=== PATIENT | female | born 1950 | race Caucasian/White ===

== ENCOUNTER 2017-04-06 12:27 | Inpatient (IN) | payer OTHER ==
[2017-04-07] MEDS: FUROSEMIDE 40 MG INJ IV ×3 (00:19→13:06)
[2017-04-07 00:22] LABS: ADD MAN DIFF? NO
[2017-04-07 00:24] LABS: BASOPHILS % 0.3 % (0.0-2.0); EOSINOPHILS # 0.3 10^3/ul (0.0-0.5); EOSINOPHILS % 3.1 % (0.0-7.0); HEMATOCRIT 31.1 % (37.0-47.0); HEMOGLOBIN 9.3 g/dl (12.0-16.0); LYMPHOCYTES # 1.6 10^3/ul (0.8-2.9); LYMPHOCYTES % 16.9 % (15.0-51.0); MEAN CORPUSCULAR HEMOGLOBIN 24.7 pg (29.0-33.0); MEAN CORPUSCULAR HGB CONC 29.9 g/dl (32.0-37.0); MEAN CORPUSCULAR VOLUME 82.5 fl (82.0-101.0); MEAN PLATELET VOLUME 10.2 fl (7.4-10.4); MONOCYTE # 0.6 10^3/ul (0.3-0.9); MONOCYTES % 6.2 % (0.0-11.0); NEUTROPHIL # 7.1 10^3/ul (1.6-7.5); NEUTROPHILS % 73.2 % (39.0-77.0); PLATELET COUNT 278 10^3/UL (140-415); RED BLOOD COUNT 3.77 10^6/ul (4.20-5.40); RED CELL DISTRIBUTION WIDTH 17.1 % (11.5-14.5)
[2017-04-07 00:24] LABS: WHITE BLOOD COUNT 9.7 10^3/ul (4.8-10.8)
[2017-04-07 01:00] LABS: ALANINE AMINOTRANSFERASE 31 IU/L (13-69); ALBUMIN 3.3 g/dl (3.3-4.9); ALBUMIN/GLOBULIN RATIO 0.89; ALKALINE PHOSPHATASE 101 IU/L (42-121); ANION GAP 14 (8-16); ASPARTATE AMINO TRANSFERASE 18 IU/L (15-46); BILIRUBIN,INDIRECT 0.1 mg/dl (0-1.1); BILIRUBIN,TOTAL 0.1 mg/dl (0.2-1.3); BLOOD UREA NITROGEN 20 mg/dl (7-20); CALCIUM 8.6 mg/dl (8.4-10.2); CARBON DIOXIDE 25 mmol/L (21-31); CHLORIDE 103 mmol/L (97-110); CREATININE 0.84 mg/dl (0.44-1.00); GLUCOSE 165 mg/dl (70-220); POTASSIUM 4.5 mmol/L (3.5-5.1); SODIUM 137 mmol/L (135-144)
[2017-04-07 01:13] LABS: B-TYPE NATRIURETIC PEPTIDE 369 PG/ML (0-125)
[2017-04-07 01:36] LABS: TROPONIN-I < 0.012 ng/ml (0.00-0.12)
[2017-04-07] MEDS ORDERED: NITROGLYCERIN (SL) 0.4 MG TAB SL (05:30)
[2017-04-07] MEDS ORDERED: morphine 2 MG INJ IV (05:30)
[2017-04-07] MEDS ORDERED: ONDANSETRON 4 MG INJ IV (05:30)
[2017-04-07] MEDS ORDERED: NACL 0.9% 3 ML SYG IV (05:30)
[2017-04-07] MEDS ORDERED: ALBUTEROL HFA 8 GM INHALER INH (06:00)
[2017-04-07] MEDS ORDERED: DEXTROSE 50% 50 ML SYRINGE IV ×2 (06:30)
[2017-04-07] MEDS ORDERED: GLUCOSE GEL 15 GRAM TUBE PO ×2 (06:30)
[2017-04-07] MEDS ORDERED: GLUCOSE GEL 15 GRAM TUBE BUCCAL (06:30)
[2017-04-07] MEDS ORDERED: GLUCAGON 1 MG INJ IM (06:30)
[2017-04-07 06:52] LABS: CREATINE KINASE 45 IU/L (23-200)
[2017-04-07 07:02] LABS: CK INDEX 1.6; CK-MB 0.71 ng/ml (0.0-2.4)
[2017-04-07 07:07] LABS: TROPONIN-I < 0.012 ng/ml (0.00-0.12)
[2017-04-07] MEDS: INSULIN ASPART [NOVOLOG] 3 ML PEN SC ×6 (07:53→23:15)
[2017-04-07] MEDS ORDERED: LISPRO SC (08:00)
[2017-04-07] MEDS ORDERED: INSULIN GLARGINE [LANtus] 3 ML PEN SC (09:00)
[2017-04-07] MEDS: INSULIN GLARGINE [LANtus] 3 ML PEN SC (09:13)
[2017-04-07] MEDS: ASPIRIN (EC) 81 MG TAB PO (09:15)
[2017-04-07] MEDS: ATORVASTATIN 40 MG TAB PO (09:15)
[2017-04-07] MEDS: GABAPENTIN 300 MG CAP PO ×2 (09:15→23:12)
[2017-04-07] MEDS: AMLODIPINE 10 MG TAB PO (09:16)
[2017-04-07] MEDS: BENAZEPRIL 40 MG TAB PO (09:16)
[2017-04-07] MEDS: HYDROCHLOROTHIAZIDE 25 MG TAB PO (09:19)
[2017-04-07] MEDS: FAMOTIDINE 20 MG TAB PO ×2 (09:19→23:12)
[2017-04-07 11:34] LABS: CREATINE KINASE 46 IU/L (23-200)
[2017-04-07 11:46] LABS: CK INDEX 1.2; CK-MB 0.56 ng/ml (0.0-2.4)
[2017-04-07 11:54] LABS: TROPONIN-I < 0.012 ng/ml (0.00-0.12)
[2017-04-07] MEDS: LATANOPROST 0.005% 2.5 ML OPH BOTH EYES (23:11)
[2017-04-08] MEDS: hydrALAzine 20 MG INJ IV ×2 (00:33→20:26)
[2017-04-08] MEDS: ACCU-CHEK XX (02:21)
[2017-04-08] MEDS: FUROSEMIDE 40 MG INJ IV ×2 (07:03→17:41)
[2017-04-08] MEDS: ATORVASTATIN 40 MG TAB PO (08:28)
[2017-04-08] MEDS: GABAPENTIN 300 MG CAP PO ×2 (08:28→20:25)
[2017-04-08] MEDS: FAMOTIDINE 20 MG TAB PO ×2 (08:28→20:25)
[2017-04-08] MEDS: ASPIRIN (EC) 81 MG TAB PO (08:28)
[2017-04-08] MEDS: BENAZEPRIL 40 MG TAB PO (08:29)
[2017-04-08] MEDS: AMLODIPINE 10 MG TAB PO (08:29)
[2017-04-08] MEDS: INSULIN ASPART [NOVOLOG] 3 ML PEN SC ×7 (08:33→20:25)
[2017-04-08] MEDS: INSULIN GLARGINE [LANtus] 3 ML PEN SC (08:34)
[2017-04-08 08:53] LABS: ADD MAN DIFF? NO; BASOPHILS % 0.6 % (0.0-2.0); EOSINOPHILS # 0.3 10^3/ul (0.0-0.5); EOSINOPHILS % 4.6 % (0.0-7.0); HEMATOCRIT 29.7 % (37.0-47.0); HEMOGLOBIN 9.4 g/dl (12.0-16.0); LYMPHOCYTES # 1.4 10^3/ul (0.8-2.9); LYMPHOCYTES % 21.7 % (15.0-51.0); MEAN CORPUSCULAR HEMOGLOBIN 25.2 pg (29.0-33.0); MEAN CORPUSCULAR HGB CONC 31.6 g/dl (32.0-37.0); MEAN CORPUSCULAR VOLUME 79.6 fl (82.0-101.0); MEAN PLATELET VOLUME 9.9 fl (7.4-10.4); MONOCYTE # 0.6 10^3/ul (0.3-0.9); NEUTROPHIL # 4.2 10^3/ul (1.6-7.5); NEUTROPHILS % 63.8 % (39.0-77.0); PLATELET COUNT 285 10^3/UL (140-415); RED BLOOD COUNT 3.73 10^6/ul (4.20-5.40); RED CELL DISTRIBUTION WIDTH 17.1 % (11.5-14.5)
[2017-04-08 08:53] LABS: WHITE BLOOD COUNT 6.5 10^3/ul (4.8-10.8)
[2017-04-08 09:23] LABS: ALANINE AMINOTRANSFERASE 31 IU/L (13-69); ALBUMIN 3.3 g/dl (3.3-4.9); ALBUMIN/GLOBULIN RATIO 0.94; ALKALINE PHOSPHATASE 93 IU/L (42-121); ANION GAP 11 (8-16); ASPARTATE AMINO TRANSFERASE 16 IU/L (15-46); BILIRUBIN,INDIRECT 0.2 mg/dl (0-1.1); BILIRUBIN,TOTAL 0.2 mg/dl (0.2-1.3); BLOOD UREA NITROGEN 34 mg/dl (7-20); CARBON DIOXIDE 32 mmol/L (21-31); CHLORIDE 97 mmol/L (97-110); CHOL/HDL RATIO 2.4 RATIO; CHOLESTEROL 118 mg/dl (100-200); CREATININE 0.98 mg/dl (0.44-1.00); GLUCOSE 161 mg/dl (70-220); HDL CHOLESTEROL 48 mg/dl (35-98); LDL CHOLESTEROL,CALCULATED 54 mg/dl; MAGNESIUM 1.9 mg/dl (1.7-2.5); SODIUM 136 mmol/L (135-144); TOTAL PROTEIN 6.8 g/dl (6.1-8.1); TRIGLYCERIDES 82 mg/dl (0-149)
[2017-04-08 09:34] LABS: HEMOGLOBIN A1C 7.4 % (0-5.9)
[2017-04-08 09:49] LABS: IRON 40 ug/dl (35-150)
[2017-04-08 09:58] LABS: % IRON SATURATION 11 % SAT (22-52); TOTAL IRON BINDING CAPACITY 376 ug/dl (241-421)
[2017-04-08 10:25] LABS: FERRITIN 28.1 ng/ml (11.1-264.0)
[2017-04-08] MEDS: LEVALBUTEROL (NEB) 0.63 MG/3 ML AMP HHN (13:07)
[2017-04-08] MEDS: SOD FERRIC GLUC COMPLX 125 MG in SOD CHLORIDE 0.9% 100 ML IVPB (17:40)
[2017-04-08] MEDS: MAGNESIUM SULFATE 2 GM/50 ML 50 ML IVPB (19:56)
[2017-04-08] MEDS: LATANOPROST 0.005% 2.5 ML OPH BOTH EYES (20:26)
[2017-04-09] MEDS: ACCU-CHEK XX (02:00)
[2017-04-09] MEDS: FUROSEMIDE 40 MG INJ IV (05:29)
[2017-04-09] MEDS: INSULIN ASPART [NOVOLOG] 3 ML PEN SC ×8 (08:00→21:00)
[2017-04-09] MEDS: ASPIRIN (EC) 81 MG TAB PO (08:11)
[2017-04-09] MEDS: AMLODIPINE 10 MG TAB PO (08:11)
[2017-04-09] MEDS: GABAPENTIN 300 MG CAP PO ×2 (08:11→20:27)
[2017-04-09] MEDS: FAMOTIDINE 20 MG TAB PO ×2 (08:11→20:27)
[2017-04-09] MEDS: ATORVASTATIN 40 MG TAB PO (08:11)
[2017-04-09] MEDS: BENAZEPRIL 40 MG TAB PO (08:12)
[2017-04-09] MEDS: INSULIN GLARGINE [LANtus] 3 ML PEN SC (08:16)
[2017-04-09] MEDS: LEVALBUTEROL (NEB) 0.63 MG/3 ML AMP HHN (08:34)
[2017-04-09] MEDS: SOD FERRIC GLUC COMPLX 125 MG in SOD CHLORIDE 0.9% 100 ML IVPB (16:09)
[2017-04-09 16:25] LABS: ANION GAP 11 (8-16); BLOOD UREA NITROGEN 33 mg/dl (7-20); CALCIUM 8.5 mg/dl (8.4-10.2); CARBON DIOXIDE 32 mmol/L (21-31); CHLORIDE 97 mmol/L (97-110); GLUCOSE 206 mg/dl (70-220); MAGNESIUM 2.2 mg/dl (1.7-2.5); POTASSIUM 3.3 mmol/L (3.5-5.1); SODIUM 137 mmol/L (135-144)
[2017-04-09] MEDS: BUMETANIDE 3 MG in DEXTROSE 5% 18 ML IV (17:03)
[2017-04-09] MEDS: POTASSIUM CHLORIDE (SR) 20 MEQ TAB PO (17:52)
[2017-04-09] MEDS: LATANOPROST 0.005% 2.5 ML OPH BOTH EYES (20:27)
[2017-04-10] MEDS: ACCU-CHEK XX (02:00)
[2017-04-10] MEDS: FUROSEMIDE 40 MG INJ IV (05:39)
[2017-04-10 07:40] LABS: ADD MAN DIFF? NO
[2017-04-10 07:49] LABS: BASOPHILS % 0.5 % (0.0-2.0); EOSINOPHILS # 0.3 10^3/ul (0.0-0.5); EOSINOPHILS % 5.7 % (0.0-7.0); HEMATOCRIT 32.1 % (37.0-47.0); HEMOGLOBIN 9.5 g/dl (12.0-16.0); LYMPHOCYTES # 1.1 10^3/ul (0.8-2.9); LYMPHOCYTES % 19.5 % (15.0-51.0); MEAN CORPUSCULAR HEMOGLOBIN 24.2 pg (29.0-33.0); MEAN CORPUSCULAR HGB CONC 29.6 g/dl (32.0-37.0); MEAN CORPUSCULAR VOLUME 81.9 fl (82.0-101.0); MEAN PLATELET VOLUME 9.9 fl (7.4-10.4); MONOCYTE # 0.6 10^3/ul (0.3-0.9); MONOCYTES % 9.9 % (0.0-11.0); NEUTROPHIL # 3.8 10^3/ul (1.6-7.5); NEUTROPHILS % 64.2 % (39.0-77.0); PLATELET COUNT 267 10^3/UL (140-415); RED BLOOD COUNT 3.92 10^6/ul (4.20-5.40); RED CELL DISTRIBUTION WIDTH 16.7 % (11.5-14.5)
[2017-04-10 07:49] LABS: WHITE BLOOD COUNT 5.8 10^3/ul (4.8-10.8)
[2017-04-10] MEDS: ASPIRIN (EC) 81 MG TAB PO (08:05)
[2017-04-10] MEDS: FAMOTIDINE 20 MG TAB PO ×2 (08:06→20:17)
[2017-04-10] MEDS: AMLODIPINE 10 MG TAB PO (08:06)
[2017-04-10] MEDS: ATORVASTATIN 40 MG TAB PO (08:06)
[2017-04-10] MEDS: BENAZEPRIL 40 MG TAB PO (08:06)
[2017-04-10] MEDS: GABAPENTIN 300 MG CAP PO ×2 (08:06→20:17)
[2017-04-10 08:07] LABS: ANION GAP 10 (8-16); BLOOD UREA NITROGEN 33 mg/dl (7-20); CALCIUM 9.1 mg/dl (8.4-10.2); CARBON DIOXIDE 34 mmol/L (21-31); CHLORIDE 98 mmol/L (97-110); CREATININE 0.87 mg/dl (0.44-1.00); GLUCOSE 204 mg/dl (70-220); POTASSIUM 4.6 mmol/L (3.5-5.1); SODIUM 137 mmol/L (135-144)
[2017-04-10] MEDS: INSULIN GLARGINE [LANtus] 3 ML PEN SC ×2 (08:10→20:19)
[2017-04-10] MEDS: INSULIN ASPART [NOVOLOG] 3 ML PEN SC ×7 (08:11→20:26)
[2017-04-10 08:17] LABS: MAGNESIUM 2.2 mg/dl (1.7-2.5)
[2017-04-10] MEDS: hydrALAzine 20 MG INJ IV (11:49)
[2017-04-10] MEDS: BUMETANIDE 6 MG in DEXTROSE 5% 36 ML IV (14:00)
[2017-04-10] MEDS: SOD FERRIC GLUC COMPLX 125 MG in SOD CHLORIDE 0.9% 100 ML IVPB (16:52)
[2017-04-10] MEDS ORDERED: INSULIN ASPART [NOVOLOG] 3 ML PEN SC (18:05)
[2017-04-10] MEDS: LATANOPROST 0.005% 2.5 ML OPH BOTH EYES (20:17)
[2017-04-11] MEDS: ACCU-CHEK XX (01:52)
[2017-04-11] MEDS: BUMETANIDE 1 MG INJ IV (05:35)
[2017-04-11 07:31] LABS: ADD MAN DIFF? NO
[2017-04-11 07:37] LABS: BASOPHILS % 0.6 % (0.0-2.0); EOSINOPHILS # 0.3 10^3/ul (0.0-0.5); EOSINOPHILS % 4.1 % (0.0-7.0); HEMATOCRIT 30.8 % (37.0-47.0); HEMOGLOBIN 9.5 g/dl (12.0-16.0); LYMPHOCYTES # 1.2 10^3/ul (0.8-2.9); MEAN CORPUSCULAR HEMOGLOBIN 25.1 pg (29.0-33.0); MEAN CORPUSCULAR HGB CONC 30.8 g/dl (32.0-37.0); MEAN CORPUSCULAR VOLUME 81.3 fl (82.0-101.0); MEAN PLATELET VOLUME 10.4 fl (7.4-10.4); MONOCYTE # 0.7 10^3/ul (0.3-0.9); MONOCYTES % 10.2 % (0.0-11.0); NEUTROPHIL # 4.5 10^3/ul (1.6-7.5); NEUTROPHILS % 66.5 % (39.0-77.0); PLATELET COUNT 262 10^3/UL (140-415); RED BLOOD COUNT 3.79 10^6/ul (4.20-5.40); RED CELL DISTRIBUTION WIDTH 16.9 % (11.5-14.5)
[2017-04-11 07:37] LABS: WHITE BLOOD COUNT 6.8 10^3/ul (4.8-10.8)
[2017-04-11 07:49] LABS: ANION GAP 14 (8-16); BLOOD UREA NITROGEN 36 mg/dl (7-20); CALCIUM 8.6 mg/dl (8.4-10.2); CARBON DIOXIDE 31 mmol/L (21-31); CHLORIDE 98 mmol/L (97-110); CREATININE 0.81 mg/dl (0.44-1.00); GLUCOSE 186 mg/dl (70-220); POTASSIUM 4.7 mmol/L (3.5-5.1); SODIUM 138 mmol/L (135-144)
[2017-04-11 08:23] LABS: MAGNESIUM 1.8 mg/dl (1.7-2.5)
[2017-04-11] MEDS: INSULIN ASPART [NOVOLOG] 3 ML PEN SC ×6 (09:19→20:15)
[2017-04-11] MEDS: ASPIRIN (EC) 81 MG TAB PO (09:20)
[2017-04-11] MEDS: FAMOTIDINE 20 MG TAB PO ×2 (09:20→20:08)
[2017-04-11] MEDS: ATORVASTATIN 40 MG TAB PO (09:20)
[2017-04-11] MEDS: BENAZEPRIL 40 MG TAB PO (09:20)
[2017-04-11] MEDS: GABAPENTIN 300 MG CAP PO ×2 (09:20→20:08)
[2017-04-11] MEDS: INSULIN GLARGINE [LANtus] 3 ML PEN SC ×2 (09:23→20:16)
[2017-04-11] MEDS: AMLODIPINE 10 MG TAB PO (09:23)
[2017-04-11] MEDS ORDERED: BUMETANIDE 1 MG INJ IV (18:00)
[2017-04-11] MEDS: DEXTROSE 5% IV (18:22)
[2017-04-11] MEDS: BUMETANIDE IV (18:22)
[2017-04-11] MEDS: LATANOPROST 0.005% 2.5 ML OPH BOTH EYES (20:07)
[2017-04-11] MEDS: hydrALAzine 20 MG INJ IV (23:35)
[2017-04-12] MEDS: ACCU-CHEK XX (02:00)
[2017-04-12] MEDS: BUMETANIDE IV ×2 (05:44→16:59)
[2017-04-12] MEDS: DEXTROSE 5% IV ×2 (05:44→16:59)
[2017-04-12] MEDS: ACETAMINOPHEN 325 MG TAB PO (05:52)
[2017-04-12] MEDS ORDERED: GUAIFENESIN/DM 5ML CUP PO (07:00)
[2017-04-12 07:06] LABS: ANION GAP 12 (8-16); BLOOD UREA NITROGEN 32 mg/dl (7-20); CALCIUM 8.5 mg/dl (8.4-10.2); CARBON DIOXIDE 33 mmol/L (21-31); CHLORIDE 96 mmol/L (97-110); CREATININE 0.92 mg/dl (0.44-1.00); GLUCOSE 225 mg/dl (70-220); MAGNESIUM 1.8 mg/dl (1.7-2.5); POTASSIUM 3.9 mmol/L (3.5-5.1); SODIUM 137 mmol/L (135-144)
[2017-04-12] MEDS: INSULIN ASPART [NOVOLOG] 3 ML PEN SC ×8 (08:03→23:25)
[2017-04-12] MEDS: AMLODIPINE 10 MG TAB PO (09:05)
[2017-04-12] MEDS: ATORVASTATIN 40 MG TAB PO (09:05)
[2017-04-12] MEDS: GABAPENTIN 300 MG CAP PO ×2 (09:06→20:53)
[2017-04-12] MEDS: ASPIRIN (EC) 81 MG TAB PO (09:06)
[2017-04-12] MEDS: FAMOTIDINE 20 MG TAB PO ×2 (09:06→20:53)
[2017-04-12] MEDS: BENAZEPRIL 40 MG TAB PO (09:06)
[2017-04-12] MEDS: INSULIN GLARGINE [LANtus] 3 ML PEN SC ×3 (09:14→23:24)
[2017-04-12] MEDS: MAGNESIUM SULFATE 2 GM/50 ML 50 ML IVPB (17:00)
[2017-04-12] MEDS: LATANOPROST 0.005% 2.5 ML OPH BOTH EYES (20:53)
[2017-04-13] MEDS: ACCU-CHEK XX (02:00)
[2017-04-13] MEDS: BUMETANIDE IV ×2 (06:21→17:39)
[2017-04-13] MEDS: DEXTROSE 5% IV ×2 (06:21→17:39)
[2017-04-13] MEDS: INSULIN ASPART [NOVOLOG] 3 ML PEN SC ×6 (08:04→17:44)
[2017-04-13] MEDS: INSULIN GLARGINE [LANtus] 3 ML PEN SC (08:05)
[2017-04-13] MEDS: GABAPENTIN 300 MG CAP PO (08:41)
[2017-04-13] MEDS: BENAZEPRIL 40 MG TAB PO (08:41)
[2017-04-13] MEDS: ASPIRIN (EC) 81 MG TAB PO (08:41)
[2017-04-13] MEDS: AMLODIPINE 10 MG TAB PO (08:41)
[2017-04-13] MEDS: FAMOTIDINE 20 MG TAB PO (08:41)
[2017-04-13] MEDS: ATORVASTATIN 40 MG TAB PO (08:41)
[2017-04-13] MEDS ORDERED: INSULIN GLARGINE [LANtus] 3 ML PEN SC (20:00)
== END 2017-04-13 18:42 | disposition home or self-care (01) | DRG 292 ==
LOC: E/R 12:27 → MS4 04-07 04:39
DX: I11.0 Hypertensive heart disease with heart failure (principal); Z68.42 Body mass index [BMI] 45.0-49.9, adult; I80.8 Phlebitis and thrombophlebitis of other sites; E11.9 Type 2 diabetes mellitus without complications; I25.10 Atherosclerotic heart disease of native coronary artery without angina pectoris; D50.9 Iron deficiency anemia, unspecified; I50.33 Acute on chronic diastolic (congestive) heart failure; E66.9 Obesity, unspecified; I34.0 Nonrheumatic mitral (valve) insufficiency; Z79.4 Long term (current) use of insulin
CPT/HCPCS: 71045; 80048; 80053; 80061; 82550; 82553; 82728; 82962; 83036; 83540; 83735; 83880; 84443; 84484; 85025; 93005; 94640; 94664

== ENCOUNTER 2017-05-17 19:07 | Inpatient (IN) | payer MEDICARE, OTHER ==
[2017-05-17] MEDS: IPRATROPIUM (NEB) 0.5 MG/2.5 ML AMP INH (23:07)
[2017-05-17] MEDS: ALBUTEROL 0.083% (NEB) 2.5 MG/3 ML AMP INH (23:07)
[2017-05-17 23:37] LABS: ADD MAN DIFF? NO
[2017-05-17 23:40] LABS: BASOPHILS % 0.4 % (0.0-2.0); EOSINOPHILS # 0.3 10^3/ul (0.0-0.5); EOSINOPHILS % 4.2 % (0.0-7.0); HEMATOCRIT 28.4 % (37.0-47.0); HEMOGLOBIN 8.9 g/dl (12.0-16.0); LYMPHOCYTES # 1.7 10^3/ul (0.8-2.9); LYMPHOCYTES % 21.2 % (15.0-51.0); MEAN CORPUSCULAR HEMOGLOBIN 24.8 pg (29.0-33.0); MEAN CORPUSCULAR HGB CONC 31.3 g/dl (32.0-37.0); MEAN CORPUSCULAR VOLUME 79.1 fl (82.0-101.0); MONOCYTE # 0.7 10^3/ul (0.3-0.9); MONOCYTES % 8.9 % (0.0-11.0); NEUTROPHIL # 5.1 10^3/ul (1.6-7.5); NEUTROPHILS % 64.8 % (39.0-77.0); PLATELET COUNT 275 10^3/UL (140-415); RED BLOOD COUNT 3.59 10^6/ul (4.20-5.40); RED CELL DISTRIBUTION WIDTH 16.8 % (11.5-14.5)
[2017-05-17 23:40] LABS: WHITE BLOOD COUNT 7.9 10^3/ul (4.8-10.8)
[2017-05-17 23:53] LABS: INR 1.08; PROTIME 14.1 Sec (11.9-14.9); PT RATIO 1.1
[2017-05-17 23:54] LABS: PARTIAL THROMBOPLASTIN TIME 29.9 Sec (25.0-35.0)
[2017-05-18 00:14] LABS: ALANINE AMINOTRANSFERASE 26 IU/L (13-69); ALBUMIN 2.9 g/dl (3.3-4.9); ALKALINE PHOSPHATASE 118 IU/L (42-121); ANION GAP 14 (8-16); ASPARTATE AMINO TRANSFERASE 13 IU/L (15-46); B-TYPE NATRIURETIC PEPTIDE 549 PG/ML (0-125); BILIRUBIN,INDIRECT 0.1 mg/dl (0-1.1); BILIRUBIN,TOTAL 0.1 mg/dl (0.2-1.3); BLOOD UREA NITROGEN 30 mg/dl (7-20); CALCIUM 8.8 mg/dl (8.4-10.2); CARBON DIOXIDE 22 mmol/L (21-31); CHLORIDE 104 mmol/L (97-110); GLUCOSE 142 mg/dl (70-220); POTASSIUM 4.1 mmol/L (3.5-5.1); SODIUM 136 mmol/L (135-144); TOTAL PROTEIN 6.1 g/dl (6.1-8.1); TROPONIN-I < 0.012 ng/ml (0.00-0.12)
[2017-05-18] MEDS: FUROSEMIDE 40 MG INJ IV ×2 (02:59→13:00)
[2017-05-18] MEDS ORDERED: ALBUTEROL/IPRATROPIUM (NEB) 3 ML AMP HHN (07:00)
[2017-05-18] MEDS ORDERED: NACL 0.9% 3 ML SYG IV (07:00)
[2017-05-18] MEDS ORDERED: GLUCOSE GEL 15 GRAM TUBE BUCCAL (07:00)
[2017-05-18] MEDS ORDERED: GLUCOSE GEL 15 GRAM TUBE PO ×2 (07:00)
[2017-05-18] MEDS ORDERED: DEXTROSE 50% 50 ML SYRINGE IV ×2 (07:00)
[2017-05-18] MEDS ORDERED: GLUCAGON 1 MG INJ IM (07:00)
[2017-05-18 11:13] LABS: ADD MAN DIFF? NO
[2017-05-18 11:20] LABS: BASOPHILS % 0.6 % (0.0-2.0); EOSINOPHILS # 0.3 10^3/ul (0.0-0.5); EOSINOPHILS % 4.4 % (0.0-7.0); HEMATOCRIT 28.7 % (37.0-47.0); HEMOGLOBIN 9.1 g/dl (12.0-16.0); LYMPHOCYTES # 1.4 10^3/ul (0.8-2.9); LYMPHOCYTES % 19.3 % (15.0-51.0); MEAN CORPUSCULAR HEMOGLOBIN 24.9 pg (29.0-33.0); MEAN CORPUSCULAR HGB CONC 31.7 g/dl (32.0-37.0); MEAN CORPUSCULAR VOLUME 78.4 fl (82.0-101.0); MONOCYTE # 0.6 10^3/ul (0.3-0.9); NEUTROPHIL # 4.9 10^3/ul (1.6-7.5); NEUTROPHILS % 67.1 % (39.0-77.0); PLATELET COUNT 269 10^3/UL (140-415); RED BLOOD COUNT 3.66 10^6/ul (4.20-5.40); RED CELL DISTRIBUTION WIDTH 17.2 % (11.5-14.5)
[2017-05-18 11:20] LABS: WHITE BLOOD COUNT 7.2 10^3/ul (4.8-10.8)
[2017-05-18 11:55] LABS: IRON 29 ug/dl (35-150)
[2017-05-18 11:58] LABS: ANION GAP 11 (8-16); BLOOD UREA NITROGEN 27 mg/dl (7-20); CARBON DIOXIDE 28 mmol/L (21-31); CHLORIDE 102 mmol/L (97-110); CREATINE KINASE 34 IU/L (23-200); CREATININE 0.86 mg/dl (0.44-1.00); GLUCOSE 140 mg/dl (70-220); MAGNESIUM 1.9 mg/dl (1.7-2.5); PHOSPHORUS 4.7 mg/dl (2.5-4.9); POTASSIUM 4.1 mmol/L (3.5-5.1); SODIUM 137 mmol/L (135-144)
[2017-05-18 12:05] LABS: % IRON SATURATION 10 % SAT (22-52); TOTAL IRON BINDING CAPACITY 303 ug/dl (241-421)
[2017-05-18 12:11] LABS: CK INDEX 1.7; CK-MB 0.58 ng/ml (0.0-2.4)
[2017-05-18] MEDS: ASPIRIN (EC) 81 MG TAB PO (12:13)
[2017-05-18] MEDS: ATORVASTATIN 40 MG TAB PO (12:15)
[2017-05-18] MEDS: BENAZEPRIL 40 MG TAB PO (12:15)
[2017-05-18] MEDS: FAMOTIDINE 20 MG TAB PO ×2 (12:16→20:34)
[2017-05-18] MEDS: AMLODIPINE 10 MG TAB PO (12:16)
[2017-05-18 12:17] LABS: TROPONIN-I < 0.012 ng/ml (0.00-0.12)
[2017-05-18] MEDS: INSULIN GLARGINE [LANtus] 3 ML PEN SC (12:19)
[2017-05-18] MEDS: HEPARIN 5,000 UNIT/0.5 ML VIAL SC ×2 (12:20→22:01)
[2017-05-18] MEDS: ONDANSETRON 4 MG INJ IV (13:58)
[2017-05-18] MEDS: morphine 2 MG INJ IV ×2 (13:58→15:43)
[2017-05-18] MEDS: BUMETANIDE 1 MG INJ IV (14:30)
[2017-05-18 15:44] LABS: CREATINE KINASE 44 IU/L (23-200)
[2017-05-18 15:58] LABS: CK INDEX 1.3; CK-MB 0.56 ng/ml (0.0-2.4); TROPONIN-I < 0.012 ng/ml (0.00-0.12)
[2017-05-18] MEDS: MAGNESIUM SULFATE 1 GM/D5W 100 ML IVPB (17:01)
[2017-05-18] MEDS: BUMETANIDE 6 MG in DEXTROSE 5% 36 ML IV (18:21)
[2017-05-18] MEDS: GABAPENTIN 300 MG CAP PO (20:34)
[2017-05-18] MEDS: BENAZEPRIL 20 MG TAB PO (20:35)
[2017-05-18] MEDS: AMLODIPINE 5 MG TAB PO (20:35)
[2017-05-18] MEDS: LATANOPROST 0.005% 2.5 ML OPH BOTH EYES (21:00)
[2017-05-18] MEDS: INSULIN ASPART [NOVOLOG] 3 ML PEN SC (22:04)
[2017-05-19] MEDS: hydrALAzine 20 MG INJ IV (04:28)
[2017-05-19 05:17] LABS: ADD MAN DIFF? NO
[2017-05-19] MEDS: BUMETANIDE 2 MG in DEXTROSE 5% 17 ML IV (05:25)
[2017-05-19 05:34] LABS: BASOPHIL # 0.1 10^3/ul (0.0-0.1); BASOPHILS % 0.6 % (0.0-2.0); EOSINOPHILS # 0.3 10^3/ul (0.0-0.5); HEMATOCRIT 29.4 % (37.0-47.0); HEMOGLOBIN 9.2 g/dl (12.0-16.0); LYMPHOCYTES % 11.7 % (15.0-51.0); MEAN CORPUSCULAR HEMOGLOBIN 24.6 pg (29.0-33.0); MEAN CORPUSCULAR HGB CONC 31.3 g/dl (32.0-37.0); MEAN CORPUSCULAR VOLUME 78.6 fl (82.0-101.0); MEAN PLATELET VOLUME 10.2 fl (7.4-10.4); MONOCYTE # 0.6 10^3/ul (0.3-0.9); MONOCYTES % 7.1 % (0.0-11.0); NEUTROPHIL # 6.6 10^3/ul (1.6-7.5); NEUTROPHILS % 77.1 % (39.0-77.0); PLATELET COUNT 283 10^3/UL (140-415); RED BLOOD COUNT 3.74 10^6/ul (4.20-5.40); RED CELL DISTRIBUTION WIDTH 17.2 % (11.5-14.5)
[2017-05-19 05:34] LABS: WHITE BLOOD COUNT 8.6 10^3/ul (4.8-10.8)
[2017-05-19 05:41] LABS: ALANINE AMINOTRANSFERASE 32 IU/L (13-69); ALBUMIN 3.3 g/dl (3.3-4.9); ALKALINE PHOSPHATASE 95 IU/L (42-121); ANION GAP 12 (8-16); ASPARTATE AMINO TRANSFERASE 13 IU/L (15-46); BILIRUBIN,INDIRECT 0.2 mg/dl (0-1.1); BILIRUBIN,TOTAL 0.2 mg/dl (0.2-1.3); BLOOD UREA NITROGEN 32 mg/dl (7-20); CALCIUM 8.5 mg/dl (8.4-10.2); CARBON DIOXIDE 28 mmol/L (21-31); CHLORIDE 102 mmol/L (97-110); CREATININE 1.15 mg/dl (0.44-1.00); GLUCOSE 163 mg/dl (70-220); POTASSIUM 4.4 mmol/L (3.5-5.1); SODIUM 138 mmol/L (135-144); TOTAL PROTEIN 6.6 g/dl (6.1-8.1)
[2017-05-19] MEDS ORDERED: BUMETANIDE 1 MG INJ IV (06:00)
[2017-05-19] MEDS: INSULIN ASPART [NOVOLOG] 3 ML PEN SC ×8 (07:35→21:01)
[2017-05-19] MEDS: GABAPENTIN 300 MG CAP PO ×2 (08:14→21:03)
[2017-05-19] MEDS: FAMOTIDINE 20 MG TAB PO ×2 (08:15→21:12)
[2017-05-19] MEDS: AMLODIPINE 5 MG TAB PO ×2 (08:15→21:12)
[2017-05-19] MEDS: ASPIRIN (EC) 81 MG TAB PO (08:17)
[2017-05-19] MEDS: HEPARIN 5,000 UNIT/0.5 ML VIAL SC ×2 (08:24→21:02)
[2017-05-19] MEDS: INSULIN GLARGINE [LANtus] 3 ML PEN SC (08:29)
[2017-05-19] MEDS: ATORVASTATIN 40 MG TAB PO (09:32)
[2017-05-19] MEDS: BENAZEPRIL 20 MG TAB PO ×2 (09:33→21:07)
[2017-05-19] MEDS: LEVOFLOXACIN 500MG/D5W (PMX) 100 ML IVPB (11:35)
[2017-05-19] MEDS: ALBUTEROL/IPRATROPIUM (NEB) 3 ML AMP HHN ×3 (12:17→19:22)
[2017-05-19] MEDS: ONDANSETRON 4 MG INJ IV (12:19)
[2017-05-19] MEDS: METOCLOPRAMIDE 10 MG INJ IV ×2 (13:28→17:52)
[2017-05-19] MEDS: SOD FERRIC GLUC COMPLX 125 MG in SOD CHLORIDE 0.9% 100 ML IVPB (13:58)
[2017-05-19 16:09] LABS: ADD UMIC YES; UR ASCORBIC ACID NEGATIVE (NEGATIVE); UR BACTERIA FEW /HPF (NONE SEEN); UR BILIRUBIN (Dip) NEGATIVE (NEGATIVE); UR BLOOD (Dip) NEGATIVE (NEGATIVE); UR CLARITY SLIGHTLY CLOUDY (CLEAR); UR COLOR YELLOW (YELLOW); UR GLUCOSE (Dip) 1+ mg/dL (NEGATIVE); UR KETONES (Dip) NEGATIVE (NEGATIVE); UR LEUKOCYTE ESTERASE (Dip) 2+ Leu/ul (NEGATIVE); UR NITRITE (Dip) NEGATIVE (NEGATIVE); UR RBC 1 /HPF (0-5); UR SPECIFIC GRAVITY (Dip) 1.012 (1.003-1.030); UR TOTAL PROTEIN (Dip) 2+ mg/dl (NEGATIVE); UR UROBILINOGEN (Dip) NEGATIVE (NEGATIVE); UR WBC 3 /HPF (0-5)
[2017-05-19] MEDS: BUMETANIDE 4 MG in DEXTROSE 5% 24 ML IV (17:30)
[2017-05-19] MEDS: SPIRONOLACTONE 25 MG TAB PO (17:53)
[2017-05-19] MEDS: LACTOBACILLUS RHAMNOSUS CAP PO (21:08)
[2017-05-19] MEDS: LATANOPROST 0.005% 2.5 ML OPH BOTH EYES (21:10)
[2017-05-20] MEDS: METOCLOPRAMIDE 10 MG INJ IV ×2 (00:07→05:46)
[2017-05-20] MEDS: ALBUTEROL/IPRATROPIUM (NEB) 3 ML AMP HHN ×4 (02:10→19:29)
[2017-05-20] MEDS: BUMETANIDE 2 MG in DEXTROSE 5% 17 ML IV (05:46)
[2017-05-20] MEDS: SPIRONOLACTONE 25 MG TAB PO ×2 (05:46→18:39)
[2017-05-20 05:57] LABS: ADD MAN DIFF? NO
[2017-05-20 06:00] LABS: WHITE BLOOD COUNT 7.4 10^3/ul (4.8-10.8)
[2017-05-20 06:00] LABS: BASOPHILS % 0.3 % (0.0-2.0); EOSINOPHILS # 0.1 10^3/ul (0.0-0.5); EOSINOPHILS % 1.2 % (0.0-7.0); HEMATOCRIT 26.4 % (37.0-47.0); HEMOGLOBIN 8.1 g/dl (12.0-16.0); LYMPHOCYTES # 1.1 10^3/ul (0.8-2.9); LYMPHOCYTES % 15.5 % (15.0-51.0); MEAN CORPUSCULAR HEMOGLOBIN 24.8 pg (29.0-33.0); MEAN CORPUSCULAR HGB CONC 30.7 g/dl (32.0-37.0); MEAN CORPUSCULAR VOLUME 80.7 fl (82.0-101.0); MEAN PLATELET VOLUME 10.6 fl (7.4-10.4); MONOCYTE # 0.6 10^3/ul (0.3-0.9); MONOCYTES % 8.6 % (0.0-11.0); NEUTROPHIL # 5.4 10^3/ul (1.6-7.5); PLATELET COUNT 269 10^3/UL (140-415); RED BLOOD COUNT 3.27 10^6/ul (4.20-5.40); RED CELL DISTRIBUTION WIDTH 17.4 % (11.5-14.5)
[2017-05-20 06:51] LABS: ANION GAP 11 (8-16); BLOOD UREA NITROGEN 49 mg/dl (7-20); CALCIUM 8.5 mg/dl (8.4-10.2); CARBON DIOXIDE 28 mmol/L (21-31); CHLORIDE 99 mmol/L (97-110); CREATININE 2.12 mg/dl (0.44-1.00); GLUCOSE 176 mg/dl (70-220); MAGNESIUM 2.2 mg/dl (1.7-2.5); POTASSIUM 4.7 mmol/L (3.5-5.1); SODIUM 133 mmol/L (135-144)
[2017-05-20] MEDS: INSULIN ASPART [NOVOLOG] 3 ML PEN SC ×7 (07:52→21:04)
[2017-05-20] MEDS: LACTOBACILLUS RHAMNOSUS CAP PO ×2 (08:26→21:01)
[2017-05-20] MEDS: BENAZEPRIL 20 MG TAB PO (08:27)
[2017-05-20] MEDS: ASPIRIN (EC) 81 MG TAB PO (08:27)
[2017-05-20] MEDS: GABAPENTIN 300 MG CAP PO ×2 (08:27→21:00)
[2017-05-20] MEDS: AMLODIPINE 5 MG TAB PO ×2 (08:28→21:01)
[2017-05-20] MEDS: HEPARIN 5,000 UNIT/0.5 ML VIAL SC ×2 (08:28→21:03)
[2017-05-20] MEDS: INSULIN GLARGINE [LANtus] 3 ML PEN SC (08:29)
[2017-05-20] MEDS: FAMOTIDINE 20 MG TAB PO ×2 (08:29→21:01)
[2017-05-20] MEDS: ATORVASTATIN 40 MG TAB PO (08:31)
[2017-05-20] MEDS: SOD FERRIC GLUC COMPLX 125 MG in SOD CHLORIDE 0.9% 100 ML IVPB (11:35)
[2017-05-20 13:28] LABS: CREATININE,URINE RANDOM 123.43 mg/dl (20-320)
[2017-05-20 13:28] LABS: SODIUM,URINE RANDOM 19 mmol/L (30-90)
[2017-05-20 13:31] LABS: ADD UMIC YES; UR ASCORBIC ACID NEGATIVE (NEGATIVE); UR BACTERIA FEW /HPF (NONE SEEN); UR BILIRUBIN (Dip) NEGATIVE (NEGATIVE); UR BLOOD (Dip) NEGATIVE (NEGATIVE); UR BUDDING YEAST FEW /HPF (NONE SEEN); UR CLARITY CLOUDY (CLEAR); UR COLOR YELLOW (YELLOW); UR GLUCOSE (Dip) 1+ mg/dL (NEGATIVE); UR KETONES (Dip) NEGATIVE (NEGATIVE); UR LEUKOCYTE ESTERASE (Dip) 3+ Leu/ul (NEGATIVE); UR MUCUS FEW /HPF (NONE SEEN); UR NITRITE (Dip) NEGATIVE (NEGATIVE); UR RBC 0 /HPF (0-5); UR SPECIFIC GRAVITY (Dip) 1.013 (1.003-1.030); UR SQUAMOUS EPITHELIAL CELL FEW /HPF (FEW); UR TOTAL PROTEIN (Dip) 2+ mg/dl (NEGATIVE); UR UROBILINOGEN (Dip) NEGATIVE (NEGATIVE); UR WBC 56 /HPF (0-5)
[2017-05-20] MEDS: LATANOPROST 0.005% 2.5 ML OPH BOTH EYES (21:01)
[2017-05-21] MEDS: ALBUTEROL/IPRATROPIUM (NEB) 3 ML AMP HHN ×3 (01:28→15:13)
[2017-05-21 04:53] LABS: ADD MAN DIFF? NO
[2017-05-21 05:00] LABS: WHITE BLOOD COUNT 8.7 10^3/ul (4.8-10.8)
[2017-05-21 05:00] LABS: BASOPHILS % 0.3 % (0.0-2.0); EOSINOPHILS # 0.2 10^3/ul (0.0-0.5); EOSINOPHILS % 2.4 % (0.0-7.0); HEMATOCRIT 25.9 % (37.0-47.0); HEMOGLOBIN 8.1 g/dl (12.0-16.0); LYMPHOCYTES # 0.7 10^3/ul (0.8-2.9); LYMPHOCYTES % 8.3 % (15.0-51.0); MEAN CORPUSCULAR HEMOGLOBIN 24.7 pg (29.0-33.0); MEAN CORPUSCULAR HGB CONC 31.3 g/dl (32.0-37.0); MEAN PLATELET VOLUME 10.5 fl (7.4-10.4); MONOCYTE # 0.6 10^3/ul (0.3-0.9); MONOCYTES % 6.7 % (0.0-11.0); NEUTROPHIL # 7.1 10^3/ul (1.6-7.5); NEUTROPHILS % 81.6 % (39.0-77.0); PLATELET COUNT 255 10^3/UL (140-415); RED BLOOD COUNT 3.28 10^6/ul (4.20-5.40); RED CELL DISTRIBUTION WIDTH 17.3 % (11.5-14.5)
[2017-05-21 05:27] LABS: PHOSPHORUS 6.8 mg/dl (2.5-4.9)
[2017-05-21 05:27] LABS: MAGNESIUM 2.4 mg/dl (1.7-2.5)
[2017-05-21 05:30] LABS: ANION GAP 14 (8-16); BLOOD UREA NITROGEN 61 mg/dl (7-20); CALCIUM 8.1 mg/dl (8.4-10.2); CARBON DIOXIDE 27 mmol/L (21-31); CHLORIDE 99 mmol/L (97-110); CREATININE 2.29 mg/dl (0.44-1.00); GLUCOSE 188 mg/dl (70-220); POTASSIUM 5.1 mmol/L (3.5-5.1); SODIUM 135 mmol/L (135-144)
[2017-05-21] MEDS: SPIRONOLACTONE 25 MG TAB PO ×2 (05:43→17:26)
[2017-05-21] MEDS: INSULIN ASPART [NOVOLOG] 3 ML PEN SC ×7 (07:13→20:56)
[2017-05-21] MEDS: BUMETANIDE 2 MG in DEXTROSE 5% 17 ML IV (08:29)
[2017-05-21] MEDS: ATORVASTATIN 40 MG TAB PO (08:30)
[2017-05-21] MEDS: LACTOBACILLUS RHAMNOSUS CAP PO ×2 (08:31→20:55)
[2017-05-21] MEDS: GABAPENTIN 300 MG CAP PO ×2 (08:31→20:55)
[2017-05-21] MEDS: FAMOTIDINE 20 MG TAB PO ×2 (08:31→20:55)
[2017-05-21] MEDS: ASPIRIN (EC) 81 MG TAB PO (08:31)
[2017-05-21] MEDS: AMLODIPINE 5 MG TAB PO ×2 (08:32→20:55)
[2017-05-21] MEDS: HEPARIN 5,000 UNIT/0.5 ML VIAL SC ×2 (08:32→21:03)
[2017-05-21] MEDS: INSULIN GLARGINE [LANtus] 3 ML PEN SC (08:36)
[2017-05-21] MEDS: LEVOFLOXACIN 500MG/D5W (PMX) 100 ML IVPB (11:10)
[2017-05-21] MEDS: SOD FERRIC GLUC COMPLX 125 MG in SOD CHLORIDE 0.9% 100 ML IVPB (12:30)
[2017-05-21 16:01] LABS: CREATININE, RANDOM URINE 150 mg/dL (20-320); MICROALBUMIN 49.3 mg/dL; MICROALBUMIN/CREATININE RATIO 329 (<30)
[2017-05-21] MEDS: ACETAMINOPHEN 325 MG TAB PO (16:09)
[2017-05-21] MEDS: DOCUSATE SODIUM 100 MG CAP PO (17:26)
[2017-05-21] MEDS: METOLAZONE 2.5 MG TAB PO (18:38)
[2017-05-21] MEDS: LATANOPROST 0.005% 2.5 ML OPH BOTH EYES (20:55)
[2017-05-22] MEDS: morphine 2 MG INJ IV (03:06)
[2017-05-22] MEDS: ONDANSETRON 4 MG INJ IV (03:06)
[2017-05-22 05:48] LABS: ADD MAN DIFF? NO
[2017-05-22 05:55] LABS: BASOPHILS % 0.3 % (0.0-2.0); EOSINOPHILS # 0.2 10^3/ul (0.0-0.5); EOSINOPHILS % 2.8 % (0.0-7.0); HEMATOCRIT 27.3 % (37.0-47.0); HEMOGLOBIN 8.3 g/dl (12.0-16.0); LYMPHOCYTES # 0.7 10^3/ul (0.8-2.9); LYMPHOCYTES % 9.3 % (15.0-51.0); MEAN CORPUSCULAR HEMOGLOBIN 24.6 pg (29.0-33.0); MEAN CORPUSCULAR HGB CONC 30.4 g/dl (32.0-37.0); MEAN CORPUSCULAR VOLUME 80.8 fl (82.0-101.0); MEAN PLATELET VOLUME 10.5 fl (7.4-10.4); MONOCYTE # 0.5 10^3/ul (0.3-0.9); MONOCYTES % 6.2 % (0.0-11.0); NEUTROPHIL # 6.4 10^3/ul (1.6-7.5); NEUTROPHILS % 80.8 % (39.0-77.0); PLATELET COUNT 258 10^3/UL (140-415); RED BLOOD COUNT 3.38 10^6/ul (4.20-5.40); RED CELL DISTRIBUTION WIDTH 17.4 % (11.5-14.5)
[2017-05-22 05:55] LABS: WHITE BLOOD COUNT 7.9 10^3/ul (4.8-10.8)
[2017-05-22 06:15] LABS: MAGNESIUM 2.6 mg/dl (1.7-2.5)
[2017-05-22 06:15] LABS: PHOSPHORUS 6.5 mg/dl (2.5-4.9)
[2017-05-22 06:16] LABS: ANION GAP 14 (8-16); BLOOD UREA NITROGEN 70 mg/dl (7-20); CALCIUM 8.4 mg/dl (8.4-10.2); CARBON DIOXIDE 26 mmol/L (21-31); CHLORIDE 97 mmol/L (97-110); GLUCOSE 171 mg/dl (70-220); POTASSIUM 5.5 mmol/L (3.5-5.1); SODIUM 131 mmol/L (135-144)
[2017-05-22] MEDS: SPIRONOLACTONE 25 MG TAB PO (06:21)
[2017-05-22] MEDS: INSULIN ASPART [NOVOLOG] 3 ML PEN SC ×8 (08:10→21:53)
[2017-05-22] MEDS: INSULIN GLARGINE [LANtus] 3 ML PEN SC (08:11)
[2017-05-22] MEDS: BUMETANIDE 2 MG in DEXTROSE 5% 17 ML IV (08:12)
[2017-05-22] MEDS: ACETAMINOPHEN 325 MG TAB PO ×2 (08:12→19:06)
[2017-05-22] MEDS: HEPARIN 5,000 UNIT/0.5 ML VIAL SC ×2 (08:12→21:15)
[2017-05-22] MEDS: AMLODIPINE 5 MG TAB PO ×2 (08:22→21:12)
[2017-05-22] MEDS: ASPIRIN (EC) 81 MG TAB PO (08:22)
[2017-05-22] MEDS: GABAPENTIN 300 MG CAP PO ×2 (08:22→21:12)
[2017-05-22] MEDS: LACTOBACILLUS RHAMNOSUS CAP PO ×2 (08:22→21:24)
[2017-05-22] MEDS: DOCUSATE SODIUM 100 MG CAP PO ×3 (08:22→21:09)
[2017-05-22] MEDS: FAMOTIDINE 20 MG TAB PO ×2 (08:22→21:12)
[2017-05-22] MEDS: ATORVASTATIN 40 MG TAB PO (08:22)
[2017-05-22 08:26] LABS: ADD UMIC YES; UR ASCORBIC ACID NEGATIVE (NEGATIVE); UR BACTERIA FEW /HPF (NONE SEEN); UR BILIRUBIN (Dip) NEGATIVE (NEGATIVE); UR BLOOD (Dip) NEGATIVE (NEGATIVE); UR CLARITY SLIGHTLY CLOUDY (CLEAR); UR COLOR YELLOW (YELLOW); UR GLUCOSE (Dip) NEGATIVE (NEGATIVE); UR KETONES (Dip) NEGATIVE (NEGATIVE); UR LEUKOCYTE ESTERASE (Dip) 3+ Leu/ul (NEGATIVE); UR NITRITE (Dip) NEGATIVE (NEGATIVE); UR RBC 9 /HPF (0-5); UR SPECIFIC GRAVITY (Dip) 1.013 (1.003-1.030); UR SQUAMOUS EPITHELIAL CELL FEW /HPF (FEW); UR TOTAL PROTEIN (Dip) 2+ mg/dl (NEGATIVE); UR UROBILINOGEN (Dip) NEGATIVE (NEGATIVE); UR WBC 9 /HPF (0-5)
[2017-05-22] MEDS: ALBUTEROL/IPRATROPIUM (NEB) 3 ML AMP HHN (09:13)
[2017-05-22] MEDS: SOD FERRIC GLUC COMPLX 125 MG in SOD CHLORIDE 0.9% 100 ML IVPB (13:07)
[2017-05-22] MEDS: POLYETHYLENE GLYCOL 17 GM PACKET PO (16:18)
[2017-05-22] MEDS: ALBUTEROL 0.083% (NEB) 2.5 MG/3 ML AMP HHN ×3 (16:24→20:55)
[2017-05-22] MEDS: LATANOPROST 0.005% 2.5 ML OPH BOTH EYES (21:09)
[2017-05-23] MEDS: ONDANSETRON 4 MG INJ IV ×3 (03:28→12:29)
[2017-05-23] MEDS: morphine 2 MG INJ IV ×3 (03:28→19:17)
[2017-05-23 07:11] LABS: ANION GAP 18 (8-16); BLOOD UREA NITROGEN 79 mg/dl (7-20); CALCIUM 8.3 mg/dl (8.4-10.2); CARBON DIOXIDE 27 mmol/L (21-31); CHLORIDE 97 mmol/L (97-110); CREATININE 1.75 mg/dl (0.44-1.00); GLUCOSE 179 mg/dl (70-220); MAGNESIUM 2.6 mg/dl (1.7-2.5); PHOSPHORUS 6.7 mg/dl (2.5-4.9); POTASSIUM 5.8 mmol/L (3.5-5.1); SODIUM 136 mmol/L (135-144)
[2017-05-23] MEDS: INSULIN ASPART [NOVOLOG] 3 ML PEN SC ×7 (07:16→21:20)
[2017-05-23] MEDS: BUMETANIDE 2 MG in DEXTROSE 5% 17 ML IV (09:33)
[2017-05-23] MEDS: DOCUSATE SODIUM 100 MG CAP PO ×2 (09:34→21:17)
[2017-05-23] MEDS: LACTOBACILLUS RHAMNOSUS CAP PO ×2 (09:35→21:17)
[2017-05-23] MEDS: ASPIRIN (EC) 81 MG TAB PO (09:35)
[2017-05-23] MEDS: GABAPENTIN 300 MG CAP PO ×2 (09:36→21:16)
[2017-05-23] MEDS: POLYETHYLENE GLYCOL 17 GM PACKET PO (09:36)
[2017-05-23] MEDS: FAMOTIDINE 20 MG TAB PO ×2 (09:37→21:17)
[2017-05-23] MEDS: AMLODIPINE 5 MG TAB PO (09:37)
[2017-05-23] MEDS: HEPARIN 5,000 UNIT/0.5 ML VIAL SC ×2 (09:39→21:21)
[2017-05-23] MEDS: INSULIN GLARGINE [LANtus] 3 ML PEN SC (09:41)
[2017-05-23] MEDS: ALBUTEROL 0.083% (NEB) 2.5 MG/3 ML AMP HHN ×2 (10:07→13:01)
[2017-05-23] MEDS: BUMETANIDE 1 MG TAB PO (12:19)
[2017-05-23] MEDS: BENZONATATE 100 MG CAP PO (12:19)
[2017-05-23] MEDS: ATORVASTATIN 40 MG TAB PO (12:19)
[2017-05-23] MEDS: NA POLYST SULFON 15 GM/60 ML BTL PO (12:24)
[2017-05-23] MEDS: SOD FERRIC GLUC COMPLX 125 MG in SOD CHLORIDE 0.9% 100 ML IVPB (12:30)
[2017-05-23] MEDS: LEVOFLOXACIN 500MG/D5W (PMX) 100 ML IVPB (14:39)
[2017-05-23] MEDS: SILDENAFIL 20 MG TAB PO ×2 (14:40→21:16)
[2017-05-23] MEDS: LINAGLIPTIN 5 MG TABLET PO (14:44)
[2017-05-23] MEDS: ACETAMINOPHEN 325 MG TAB PO (21:16)
[2017-05-23] MEDS: BENAZEPRIL 20 MG TAB PO (21:17)
[2017-05-23] MEDS: LATANOPROST 0.005% 2.5 ML OPH BOTH EYES (22:47)
[2017-05-24 07:18] LABS: ADD MAN DIFF? NO
[2017-05-24 07:22] LABS: WHITE BLOOD COUNT 6.3 10^3/ul (4.8-10.8)
[2017-05-24 07:22] LABS: BASOPHILS % 0.5 % (0.0-2.0); EOSINOPHILS # 0.2 10^3/ul (0.0-0.5); EOSINOPHILS % 2.7 % (0.0-7.0); HEMATOCRIT 28.7 % (37.0-47.0); LYMPHOCYTES # 0.7 10^3/ul (0.8-2.9); LYMPHOCYTES % 10.4 % (15.0-51.0); MEAN CORPUSCULAR HEMOGLOBIN 25.2 pg (29.0-33.0); MEAN CORPUSCULAR HGB CONC 31.4 g/dl (32.0-37.0); MEAN CORPUSCULAR VOLUME 80.4 fl (82.0-101.0); MEAN PLATELET VOLUME 10.3 fl (7.4-10.4); MONOCYTE # 0.6 10^3/ul (0.3-0.9); MONOCYTES % 8.8 % (0.0-11.0); NEUTROPHIL # 4.9 10^3/ul (1.6-7.5); NEUTROPHILS % 76.8 % (39.0-77.0); PLATELET COUNT 250 10^3/UL (140-415); RED BLOOD COUNT 3.57 10^6/ul (4.20-5.40); RED CELL DISTRIBUTION WIDTH 17.8 % (11.5-14.5)
[2017-05-24 07:39] LABS: ALANINE AMINOTRANSFERASE 30 IU/L (13-69); ALBUMIN 3.4 g/dl (3.3-4.9); ALBUMIN/GLOBULIN RATIO 1.06; ALKALINE PHOSPHATASE 87 IU/L (42-121); ANION GAP 15 (8-16); ASPARTATE AMINO TRANSFERASE 15 IU/L (15-46); BILIRUBIN,INDIRECT 0.2 mg/dl (0-1.1); BILIRUBIN,TOTAL 0.2 mg/dl (0.2-1.3); BLOOD UREA NITROGEN 82 mg/dl (7-20); CALCIUM 8.2 mg/dl (8.4-10.2); CARBON DIOXIDE 31 mmol/L (21-31); CHLORIDE 96 mmol/L (97-110); CREATININE 1.64 mg/dl (0.44-1.00); GLUCOSE 176 mg/dl (70-220); POTASSIUM 4.4 mmol/L (3.5-5.1); SODIUM 138 mmol/L (135-144); TOTAL PROTEIN 6.6 g/dl (6.1-8.1)
[2017-05-24 07:50] LABS: PHOSPHORUS 6.3 mg/dl (2.5-4.9)
[2017-05-24 07:50] LABS: MAGNESIUM 2.5 mg/dl (1.7-2.5)
[2017-05-24] MEDS: INSULIN ASPART [NOVOLOG] 3 ML PEN SC ×7 (07:55→21:23)
[2017-05-24] MEDS: LACTOBACILLUS RHAMNOSUS CAP PO ×2 (08:34→21:15)
[2017-05-24] MEDS: GABAPENTIN 300 MG CAP PO ×2 (08:34→21:15)
[2017-05-24] MEDS: ASPIRIN (EC) 81 MG TAB PO (08:34)
[2017-05-24] MEDS: BUMETANIDE 2 MG in DEXTROSE 5% 17 ML IV (08:34)
[2017-05-24] MEDS: ATORVASTATIN 40 MG TAB PO (08:34)
[2017-05-24] MEDS: DOCUSATE SODIUM 100 MG CAP PO ×2 (08:34→21:15)
[2017-05-24] MEDS: LINAGLIPTIN 5 MG TABLET PO (08:35)
[2017-05-24] MEDS: FAMOTIDINE 20 MG TAB PO ×2 (08:35→21:15)
[2017-05-24] MEDS: POLYETHYLENE GLYCOL 17 GM PACKET PO (08:36)
[2017-05-24] MEDS: AMLODIPINE 5 MG TAB PO (08:36)
[2017-05-24] MEDS: SILDENAFIL 20 MG TAB PO ×3 (08:37→21:15)
[2017-05-24] MEDS: HEPARIN 5,000 UNIT/0.5 ML VIAL SC ×2 (08:38→21:24)
[2017-05-24] MEDS: INSULIN GLARGINE [LANtus] 3 ML PEN SC (08:49)
[2017-05-24] MEDS: ACETAMINOPHEN 325 MG TAB PO (09:12)
[2017-05-24 13:45] LABS: AADO2 Arterial 23.8 mmHg (7.0-24.0); Allen Test ACCEPTAB; Arterial Base Excess 4.7 mmol/L (-3.0-3); Arterial Blood Gas Oxygen Sat 97.1 mmHG (95.0-98.0); Arterial COHb 0.3 % (0.0-3.0); Arterial Fraction of Oxyhgb 96.5 % (93.0-99.0); Arterial HCO3 31.1 mmol/L (22.0-26.0); Arterial MetHb 0.3 % (0.0-1.5); Arterial Total Hemglobin 9.6 g/dl (12.0-18.0); Arterial pCO2 56.7 mmhg (35-45); MODE NASAL CANNULA; Site Right Radial
[2017-05-24] MEDS: LATANOPROST 0.005% 2.5 ML OPH BOTH EYES (21:14)
[2017-05-24] MEDS: BENAZEPRIL 20 MG TAB PO (21:15)
[2017-05-25] MEDS: DOCUSATE SODIUM 100 MG CAP PO ×2 (08:43→20:47)
[2017-05-25] MEDS: INSULIN ASPART [NOVOLOG] 3 ML PEN SC ×7 (08:44→20:44)
[2017-05-25] MEDS: LACTOBACILLUS RHAMNOSUS CAP PO ×2 (08:45→20:44)
[2017-05-25] MEDS: HEPARIN 5,000 UNIT/0.5 ML VIAL SC ×2 (08:45→20:54)
[2017-05-25] MEDS: ASPIRIN (EC) 81 MG TAB PO (08:46)
[2017-05-25] MEDS: ATORVASTATIN 40 MG TAB PO (08:49)
[2017-05-25] MEDS: FAMOTIDINE 20 MG TAB PO ×2 (08:50→20:45)
[2017-05-25] MEDS: POLYETHYLENE GLYCOL 17 GM PACKET PO (08:51)
[2017-05-25] MEDS: LINAGLIPTIN 5 MG TABLET PO (08:51)
[2017-05-25] MEDS: SILDENAFIL 20 MG TAB PO ×3 (08:51→20:45)
[2017-05-25] MEDS: BUMETANIDE 2 MG in DEXTROSE 5% 17 ML IV (08:55)
[2017-05-25] MEDS: GABAPENTIN 300 MG CAP PO ×2 (08:55→20:44)
[2017-05-25] MEDS: INSULIN GLARGINE [LANtus] 3 ML PEN SC (09:09)
[2017-05-25] MEDS: CEFTRIAXONE 1 GM/50 ML (PMX) 50 ML IVPB (12:25)
[2017-05-25] MEDS: LATANOPROST 0.005% 2.5 ML OPH BOTH EYES (20:44)
[2017-05-25] MEDS: BENAZEPRIL 20 MG TAB PO (20:45)
[2017-05-26] MEDS: INSULIN ASPART [NOVOLOG] 3 ML PEN SC ×4 (08:41→12:00)
[2017-05-26] MEDS: INSULIN GLARGINE [LANtus] 3 ML PEN SC (08:42)
[2017-05-26] MEDS: HEPARIN 5,000 UNIT/0.5 ML VIAL SC (08:43)
[2017-05-26] MEDS: DOCUSATE SODIUM 100 MG CAP PO (08:45)
[2017-05-26] MEDS: BUMETANIDE 2 MG in DEXTROSE 5% 17 ML IV (08:45)
[2017-05-26] MEDS: LACTOBACILLUS RHAMNOSUS CAP PO (08:46)
[2017-05-26] MEDS: ASPIRIN (EC) 81 MG TAB PO (08:46)
[2017-05-26] MEDS: GABAPENTIN 300 MG CAP PO (08:47)
[2017-05-26] MEDS: ATORVASTATIN 40 MG TAB PO (08:47)
[2017-05-26] MEDS: FAMOTIDINE 20 MG TAB PO (08:47)
[2017-05-26] MEDS: LINAGLIPTIN 5 MG TABLET PO (08:47)
[2017-05-26] MEDS: SILDENAFIL 20 MG TAB PO ×2 (08:47→13:00)
[2017-05-26] MEDS: POLYETHYLENE GLYCOL 17 GM PACKET PO (08:47)
[2017-05-26 09:22] LABS: BLOOD UREA NITROGEN 88 mg/dl (7-20); CALCIUM 9.3 mg/dl (8.4-10.2); CHLORIDE 96 mmol/L (97-110); CREATININE 1.24 mg/dl (0.44-1.00); GLUCOSE 173 mg/dl (70-220); MAGNESIUM 3.3 mg/dl (1.7-2.5); PHOSPHORUS 4.3 mg/dl (2.5-4.9); POTASSIUM 4.3 mmol/L (3.5-5.1); SODIUM 136 mmol/L (135-144)
[2017-05-26] MEDS: METOLAZONE 2.5 MG TAB PO (09:49)
[2017-05-26] MEDS: CEFTRIAXONE 1 GM/50 ML (PMX) 50 ML IVPB (09:49)
[2017-05-26 09:54] LABS: ANION GAP 4 (8-16)
[2017-05-26 10:01] LABS: CARBON DIOXIDE 40 mmol/L (21-31)
[2017-05-26 12:04] LABS: ADD MAN DIFF? NO
[2017-05-26 12:11] LABS: BASOPHILS % 0.4 % (0.0-2.0); EOSINOPHILS # 0.1 10^3/ul (0.0-0.5); EOSINOPHILS % 1.6 % (0.0-7.0); HEMOGLOBIN 8.4 g/dl (12.0-16.0); LYMPHOCYTES # 1.1 10^3/ul (0.8-2.9); LYMPHOCYTES % 14.8 % (15.0-51.0); MEAN CORPUSCULAR HEMOGLOBIN 24.9 pg (29.0-33.0); MEAN CORPUSCULAR HGB CONC 31.1 g/dl (32.0-37.0); MEAN CORPUSCULAR VOLUME 80.1 fl (82.0-101.0); MEAN PLATELET VOLUME 11.1 fl (7.4-10.4); MONOCYTE # 0.8 10^3/ul (0.3-0.9); MONOCYTES % 10.3 % (0.0-11.0); NEUTROPHIL # 5.2 10^3/ul (1.6-7.5); NEUTROPHILS % 71.9 % (39.0-77.0); PLATELET COUNT 227 10^3/UL (140-415); RED BLOOD COUNT 3.37 10^6/ul (4.20-5.40); RED CELL DISTRIBUTION WIDTH 18.9 % (11.5-14.5)
[2017-05-26 12:11] LABS: WHITE BLOOD COUNT 7.3 10^3/ul (4.8-10.8)
[2017-05-26 12:58] LABS: HEMOGLOBIN A1C 7.2 % (0-5.9)
== END 2017-05-26 13:28 | disposition home or self-care (01) | DRG 291 ==
LOC: MS4 05-23 16:47 → E/R 19:07 → MS3 05-18 03:34
DX: I13.0 Hypertensive heart and chronic kidney disease with heart failure and stage 1 through stage 4 chronic kidney disease, or unspecified chronic kidney disease (principal); J96.01 Acute respiratory failure with hypoxia; N17.0 Acute kidney failure with tubular necrosis; I27.20 Pulmonary hypertension, unspecified; R65.10 Systemic inflammatory response syndrome (SIRS) of non-infectious origin without acute organ dysfunction; E11.22 Type 2 diabetes mellitus with diabetic chronic kidney disease; E87.1 Hypo-osmolality and hyponatremia; Z68.41 Body mass index [BMI] 40.0-44.9, adult; I50.33 Acute on chronic diastolic (congestive) heart failure; N39.0 Urinary tract infection, site not specified; E66.01 Morbid (severe) obesity due to excess calories; E87.5 Hyperkalemia; E78.5 Hyperlipidemia, unspecified; D50.9 Iron deficiency anemia, unspecified; D64.9 Anemia, unspecified; G47.33 Obstructive sleep apnea (adult) (pediatric); I25.10 Atherosclerotic heart disease of native coronary artery without angina pectoris; I34.0 Nonrheumatic mitral (valve) insufficiency; N18.9 Chronic kidney disease, unspecified; R60.0 Localized edema; Z79.82 Long term (current) use of aspirin; Z79.4 Long term (current) use of insulin
CPT/HCPCS: 36415; 36600; 71045; 76775; 80048; 80053; 81001; 81003; 82043; 82550; 82553; 82803; 82962; 83036; 83540; 83735; 83880; 84100; 84132; 84155; 84300; 84484; 85025; 85610; 85730; 87040; 87086; 93005; 93306; 93970; 94640; 94660; 94664; 96374; 97163; 97530; 99285-25